=== PATIENT | female | born 1955 | race Caucasian/White ===

== ENCOUNTER 2019-07-20 03:43 | Emergency (ER) | payer MEDICARE, BC ==
[~2019-07-20] VITALS: Ht 160 cm; Wt 72.7 kg
[~2019-07-20 03:43] MED LIST: ANAS1TAB10 PO; ARIP5TAB14 PO; ATOR20TA66 PO; CHLO10CA6; CHLO25CA10 PO; DIVA125T31 PO; DULO-31 PO; INDLA60C PO; LIOT25TA12 PO; LOSA25TA96 PO; MULT-1085 PO; OMEP20CA15 PO; ONDA4TAB6 PO; SYN0.1T PO; THIA50TA10 PO
[2019-07-20] MEDS ORDERED: pantoprazole 40 MG vial IV ONE (03:55)
[2019-07-20] MEDS ORDERED: ondansetron/PF 4mg/2ml inj IV ONE (03:55)
[2019-07-20] MEDS ORDERED: normal saline 1000ML IV soln IVB ONE (03:55)
[2019-07-20] MEDS ORDERED: LORazepam 2 mg/ml vial IV ONE ×2 (03:55→04:20)
[2019-07-20] MEDS ORDERED: famotidine/PF 10 mg/ml inj IV ONE (03:55)
--- NOTE | 2019-07-20 03:56 | NUR ---
MD at bedside examing pt. at this time. Per pt, last drink has been >24 hours.
--- NOTE | 2019-07-20 04:06 | NUR ---
pollution control technician at bedside to take CXR.
[2019-07-20 04:15] LABS: ALANINE AMINOTRANSFERASE 48 U/L (12-78); ALBUMIN 3.9 G/DL (3.4-5.0); ALBUMIN/GLOBULIN RATIO 1.1 (1.1-1.5); ALKALINE PHOSPHATASE 128 IU/L (46-116); ANION GAP 19 (8-16); ASPARTATE AMINO TRANSFERASE 39 U/L (10-37); BILIRUBIN,TOTAL 0.7 MG/DL (0.1-1.0); BLOOD UREA NITROGEN 10 MG/DL (7-18); BUN/CREATININE RATIO 11.6 (6.6-38.0); CALCIUM 8.7 MG/DL (8.5-10.1); CHLORIDE 101 MMOL/L (99-107); CREATININE 0.86 MG/DL (0.40-0.90); GLUCOSE 101 MG/DL (70-104); POTASSIUM 3.7 MMOL/L (3.5-5.1); SODIUM 138 MMOL/L (135-145); TOTAL CARBON DIOXIDE 18.5 MMOL/L (24-32); TOTAL PROTEIN 7.6 G/DL (6.4-8.2); eGFR 66 ML/MIN
[2019-07-20 04:17] LABS: BASOPHILS # (AUTO) 0.1 X10'3 (0-0.2); BASOPHILS % (AUTO) 0.7 % (0-1); EOSINOPHILS # (AUTO) 0.1 X10'3 (0-0.9); EOSINOPHILS % (AUTO) 0.9 % (0-6); HEMATOCRIT 43.4 % (35.0-45.0); HEMOGLOBIN 14.7 g/dl (12.0-16.0); LYMPHOCYTES % (AUTO) 19.9 % (21-51); MEAN CORPUSCULAR HEMOGLOBIN 34.4 PG (27.0-31.0); MEAN CORPUSCULAR HGB CONC 33.8 g/dL (33.0-36.5); MEAN CORPUSCULAR VOLUME 101.9 FL (78-98); MEAN PLATELET VOLUME 6.7 FL (7.4-10.4); MONOCYTES # (AUTO) 0.5 X10'3 (0-0.9); MONOCYTES % (AUTO) 4.7 % (2-12); NEUTROPHILS # (AUTO) 7.6 X10'3 (1.8-7.7); NEUTROPHILS % (AUTO) 73.8 % (42-75); PLATELET COUNT 370 X10'3 (140-440); RED BLOOD COUNT 4.26 X10'6 (4.20-5.60); RED CELL DISTRIBUTION WIDTH 13.4 % (11.5-14.5); WHITE BLOOD COUNT 10.3 X10'3 (4.5-11.0)
[2019-07-20] MEDS ORDERED: diphenhydrAMINE 50 mg/ml inj IV ONE (04:20)
[2019-07-20] MEDS ORDERED: metoclopramide 5 mg/ml inj IV ONE (04:20)
[2019-07-20 04:23] LABS: MAGNESIUM 1.7 MG/DL (1.5-2.4)
[2019-07-20] MEDS ORDERED: LOSA50TA64 PO (04:35)
[2019-07-20] MEDS ORDERED: OMEP-50 PO (04:35)
[2019-07-20] MEDS ORDERED: DULO60CA65 PO (04:35)
[2019-07-20] MEDS ORDERED: LEVO125T8 PO (04:35)
[2019-07-20] MEDS ORDERED: ATOR40TA72 PO (04:35)
[2019-07-20] MEDS ORDERED: FOLI0.4T14 PO (04:35)
[2019-07-20] MEDS ORDERED: INDLA60C PO (04:36)
[2019-07-20] MEDS ORDERED: THIA50TA10 PO (04:37)
[2019-07-20 05:14] VITALS: BP 140/92
[2019-07-20] MEDS ORDERED: CHLO25CA10 PO (05:19)
[2019-07-20] MEDS ORDERED: chlordiazePOXIDE 25mg capsule PO ONE (05:20)
[2019-07-20] MEDS ORDERED: METO-292 PO (05:21)
[2019-07-20] MEDS ORDERED: ONDA8TAB6 PO (05:21)
[2019-08-17] MEDS ORDERED: REISHI MUSHROOM PO (09:39)
[2019-08-17] MEDS ORDERED: ONDA4TAB6 PO (09:39)
[2019-08-17] MEDS ORDERED: [UNRECOGNIZED DRUG - OTHER] PO (09:39)
[2019-08-17] MEDS ORDERED: DIVA125T31 PO (09:39)
[2019-08-17] MEDS ORDERED: ANAS1TAB24 PO (09:39)
[2019-08-17] MEDS ORDERED: POTA20TA10 PO (09:40)
[2019-08-17] MEDS ORDERED: ATOR40TA PO (09:40)
[2019-08-21] MEDS ORDERED: CHLO25CA10 PO (09:24)
[2019-08-21] MEDS ORDERED: DIVA125T9 PO (09:24)
[2019-08-21] MEDS ORDERED: NOR5T PO (09:24)
[2019-08-21] MEDS ORDERED: LOPE-190 PO (09:24)
[2019-08-21] MEDS ORDERED: ARIP5TAB60 PO (09:24)
== END 2019-07-20 05:36 | disposition home or self-care (01) ==
LOC: ER 03:44
DX: F10.10 Alcohol abuse, uncomplicated (principal); K29.20 Alcoholic gastritis without bleeding; R11.2 Nausea with vomiting, unspecified; I10 Essential (primary) hypertension; E03.9 Hypothyroidism, unspecified; F41.9 Anxiety disorder, unspecified; F32.9 Major depressive disorder, single episode, unspecified; Z88.8 Allergy status to other drugs, medicaments and biological substances; Z79.899 Other long term (current) drug therapy; Y90.0 Blood alcohol level of less than 20 mg/100 ml
CPT/HCPCS: 36415; 71045; 80053; 83735; 83880; 84484; 85025; 93005; 96361; 96374; 96375; 99285; C9113; J1200; J2060; J2405; J2765; J3490; J7030

== ENCOUNTER 2019-11-14 06:13 | Emergency (ER) | payer MEDICARE, BC ==
[~2019-11-14] VITALS: Ht 167.6 cm; Wt 72.7 kg
[~2019-11-14 06:13] MED LIST changes: -ANAS1TAB10 PO; +ANAS1TAB49 PO; -ARIP5TAB14 PO; +ARIP5TAB60 PO; -ATOR20TA66 PO; +ATOR40TA PO; -CHLO10CA6; -DIVA125T31 PO; +DIVA125T9 PO; -DULO-31 PO; +DULO60CA65 PO; -INDLA60C PO; +LEVO125T8 PO; -LIOT25TA12 PO; -LOSA25TA96 PO; +LOSA50TA64 PO; +NOR5T PO; +OMEP-50 PO; -OMEP20CA15 PO; +PROP10TA10 PO; -SYN0.1T PO
[2019-11-14] MEDS ORDERED: propranolol 10mg tablet PO ONE (06:20)
[2019-11-14] MEDS ORDERED: haloperidol lactate 5mg/ml inj IM ONE (06:20)
[2019-11-14] MEDS ORDERED: chlordiazePOXIDE 25mg capsule PO ONE ×2 (06:20→10:20)
[2019-11-14] MEDS ORDERED: LORazepam 2 mg/ml vial IV ONE (06:20)
[2019-11-14] MEDS ORDERED: magnesium 2GM in 50ml NS 50 ML IV ONE (06:25)
[2019-11-14] MEDS ORDERED: normal saline 1000ML IV soln IVB ONE (06:30)
[2019-11-14 07:02] LABS: BASOPHILS % (AUTO) 0.5 % (0-1); EOSINOPHILS # (AUTO) 0.1 X10'3 (0-0.9); EOSINOPHILS % (AUTO) 1.4 % (0-6); HEMATOCRIT 40.1 % (35.0-45.0); HEMOGLOBIN 13.7 g/dl (12.0-16.0); LYMPHOCYTES # (AUTO) 1.4 X10'3 (1.1-4.8); LYMPHOCYTES % (AUTO) 20.7 % (21-51); MEAN CORPUSCULAR HEMOGLOBIN 34.2 PG (27.0-31.0); MEAN CORPUSCULAR VOLUME 100.6 FL (78-98); MEAN PLATELET VOLUME 6.7 FL (7.4-10.4); MONOCYTES # (AUTO) 0.5 X10'3 (0-0.9); MONOCYTES % (AUTO) 6.8 % (2-12); NEUTROPHILS # (AUTO) 4.8 X10'3 (1.8-7.7); NEUTROPHILS % (AUTO) 70.6 % (42-75); PLATELET COUNT 357 X10'3 (140-440); RED BLOOD COUNT 3.99 X10'6 (4.20-5.60); RED CELL DISTRIBUTION WIDTH 13.6 % (11.5-14.5); WHITE BLOOD COUNT 6.8 X10'3 (4.5-11.0)
[2019-11-14 07:21] LABS: ANION GAP 13 (8-16); BLOOD UREA NITROGEN 12 MG/DL (7-18); CHLORIDE 103 MMOL/L (99-107); CREATININE 0.63 MG/DL (0.40-0.90); GLUCOSE 84 MG/DL (70-104); POTASSIUM 3.7 MMOL/L (3.5-5.1); SODIUM 139 MMOL/L (135-145); TOTAL CARBON DIOXIDE 22.8 MMOL/L (24-32)
[2019-11-14 07:22] LABS: ALANINE AMINOTRANSFERASE 59 U/L (12-78); ALBUMIN 3.7 G/DL (3.4-5.0); ALBUMIN/GLOBULIN RATIO 1.1 (1.1-1.5); ALKALINE PHOSPHATASE 109 IU/L (46-116); ASPARTATE AMINO TRANSFERASE 33 U/L (10-37); BILIRUBIN,TOTAL 0.3 MG/DL (0.1-1.0); CALCIUM 8.7 MG/DL (8.5-10.1); ETHANOL 0.047 GM/DL (0.0-0.010); LIPASE 170 U/L (73-393); MAGNESIUM 1.7 MG/DL (1.5-2.4); TOTAL PROTEIN 7.2 G/DL (6.4-8.2); eGFR > 90 ML/MIN
[2019-11-14] MEDS ORDERED: CHLO25CA10 PO (10:18)
[2019-11-14] MEDS ORDERED: magnesium oxide 400mg tablet PO ONE (10:20)
[2019-11-14 10:38] VITALS: BP 142/83
[2019-11-14 10:40] LABS: CLARITY,URINE CLEAR (Clear); COLOR,URINE YELLOW (Yellow); GLUCOSE, URINE NEGATIVE (Neg); KETONES,URINE NEGATIVE (Neg); LEUKOCYTE ESTERASE ,URINE NEGATIVE (Neg); NITRITES, URINE NEGATIVE (Neg); OCCULT BLOOD,URINE NEGATIVE (Neg); PROTEIN,URINE NEGATIVE (Neg); UROBILINOGEN,URINE 0.2 E.U/dL (0.2-1.0)
[2019-11-14 11:01] LABS: UA COLLECTION TYPE CLN CATCH MIDSTREAM
== END 2019-11-14 10:40 | disposition home or self-care (01) ==
LOC: ER 06:13
DX: F10.239 Alcohol dependence with withdrawal, unspecified (principal); I10 Essential (primary) hypertension; E03.9 Hypothyroidism, unspecified; F41.9 Anxiety disorder, unspecified; F32.9 Major depressive disorder, single episode, unspecified; Z98.890 Other specified postprocedural states; Z72.89 Other problems related to lifestyle; Z88.8 Allergy status to other drugs, medicaments and biological substances; Z79.899 Other long term (current) drug therapy; Y90.0 Blood alcohol level of less than 20 mg/100 ml
CPT/HCPCS: 36415; 80053; 80320; 81003; 83690; 83735; 85025; 93005; 96365; 96366; 96372; 96375; 99284; J1630; J2060; J3475; J7030

== ENCOUNTER 2019-12-07 09:20 | Emergency (ER) | payer MEDICARE, BC ==
[~2019-12-07] VITALS: Ht 167.6 cm; Wt 72.7 kg
[~2019-12-07 09:20] MED LIST changes: -ARIP5TAB60 PO; -NOR5T PO; -THIA50TA10 PO
[2019-12-07 09:45] LABS: BASOPHILS # (AUTO) 0.1 X10'3 (0-0.2); BASOPHILS % (AUTO) 0.8 % (0-1); EOSINOPHILS # (AUTO) 0.1 X10'3 (0-0.9); EOSINOPHILS % (AUTO) 1.2 % (0-6); HEMATOCRIT 44.2 % (35.0-45.0); LYMPHOCYTES # (AUTO) 1.5 X10'3 (1.1-4.8); LYMPHOCYTES % (AUTO) 13.9 % (21-51); MEAN CORPUSCULAR HEMOGLOBIN 34.2 PG (27.0-31.0); MEAN CORPUSCULAR HGB CONC 33.8 g/dL (33.0-36.5); MEAN CORPUSCULAR VOLUME 100.9 FL (78-98); MONOCYTES # (AUTO) 0.4 X10'3 (0-0.9); MONOCYTES % (AUTO) 4.2 % (2-12); NEUTROPHILS # (AUTO) 8.4 X10'3 (1.8-7.7); NEUTROPHILS % (AUTO) 79.9 % (42-75); PLATELET COUNT 341 X10'3 (140-440); RED BLOOD COUNT 4.38 X10'6 (4.20-5.60); RED CELL DISTRIBUTION WIDTH 14.3 % (11.5-14.5); WHITE BLOOD COUNT 10.5 X10'3 (4.5-11.0)
[2019-12-07 09:57] LABS: ALANINE AMINOTRANSFERASE 70 U/L (12-78); ALBUMIN 3.8 G/DL (3.4-5.0); ALKALINE PHOSPHATASE 132 IU/L (46-116); ANION GAP 14 (8-16); ASPARTATE AMINO TRANSFERASE 88 U/L (10-37); BILIRUBIN,TOTAL 0.8 MG/DL (0.1-1.0); BLOOD UREA NITROGEN 10 MG/DL (7-18); BUN/CREATININE RATIO 13.7 (6.6-38.0); CALCIUM 8.6 MG/DL (8.5-10.1); CHLORIDE 101 MMOL/L (99-107); CREATININE 0.73 MG/DL (0.40-0.90); GLUCOSE 80 MG/DL (70-104); LIPASE 77 U/L (73-393); SODIUM 141 MMOL/L (135-145); TOTAL CARBON DIOXIDE 25.9 MMOL/L (24-32); TOTAL PROTEIN 7.6 G/DL (6.4-8.2); eGFR 80 ML/MIN
--- NOTE | 2019-12-07 10:18 | NUR ---
patient is still away to [place].
[2019-12-07] MEDS ORDERED: ondansetron/PF 4mg/2ml inj IV ONE (11:05)
--- NOTE | 2019-12-07 11:37 | NUR ---
Patient resting, complained of nausea.
[2019-12-07] MEDS ORDERED: diazepam 5mg tablet PO ONE (11:50)
[2019-12-07 14:17] LABS: URINE AMPHETAMINE SCREEN NEGATIVE (Neg); URINE BARBITUATE SCREEN NEGATIVE (Neg); URINE BENZODIAZEPINES SCREEN POSITIVE (Neg); URINE CANNABINOID SCREEN POSITIVE (Neg); URINE COCAINE SCREEN NEGATIVE (Neg); URINE METHADONE SCREEN NEGATIVE (Neg); URINE OPIATE SCREEN NEGATIVE (Neg); URINE PHENCYCLIDINE SCREEN NEGATIVE (Neg)
[2019-12-07 14:34] LABS: CLARITY,URINE CLEAR (Clear); COLOR,URINE YELLOW (Yellow); GLUCOSE, URINE NEGATIVE (Neg); KETONES,URINE 15 mg/dl (Neg); LEUKOCYTE ESTERASE ,URINE NEGATIVE (Neg); NITRITES, URINE NEGATIVE (Neg); OCCULT BLOOD,URINE NEGATIVE (Neg); PROTEIN,URINE 100 mg/dl (Neg); UROBILINOGEN,URINE 0.2 E.U/dL (0.2-1.0)
[2019-12-07 14:39] LABS: UA COLLECTION TYPE STRAIGHT CATH
[2019-12-07 14:41] LABS: BACTERIA,URINE NONE SEEN /HPF (Neg); MUCUS STRANDS FEW /LPF (Neg); RBC,URINE NONE SEEN /HPF (0-2); SQUAMOUS EPITHELIAL CELL,UR FEW /LPF (FEW); WBC,URINE 0-4 /HPF (0-4)
--- NOTE | 2019-12-07 15:45 | NUR ---
Rec patient from main ER and changed to green scrubs. [facility] Rn made aware of [id number] and states he will see her
[2019-12-07 17:54] VITALS: BP 145/97
[2019-12-07] MEDS ORDERED: folic acid 1mg tablet PO ONE (18:35)
[2019-12-07] MEDS ORDERED: chlordiazePOXIDE 25mg capsule PO ONE (18:35)
[2019-12-07] MEDS ORDERED: thiamine 100mg tablet PO ONE (18:35)
[2019-12-07] MEDS ORDERED: CHLO25CA10 PO (18:39)
--- NOTE | 2019-12-07 19:02 | NUR ---
Pt was seen by [facility] at change of shift. Pt denies s/i and was not placed on a 5150 by [facility]. Pt denies s/i, states she has librium at home. Pt reports she is unable to stand but then stood and changed her clothing and walked to the bathroom. Pt reports she has no ride home. Addendum: 12/07/19 at 1910 by TRAY Pt was given dc paperwork and pt states she has librium at home and was given rx for librium as well, [employer] was contacted for a ride home
[2019-12-08] MEDS ORDERED: PROP10TA10 PO (04:06)
[2019-12-08] MEDS ORDERED: LIOT50TA6 PO (04:06)
[2019-12-08] MEDS ORDERED: VIT1CAPS46 PO (04:06)
[2019-12-08] MEDS ORDERED: HCTZ25T PO (04:06)
[2019-12-08] MEDS ORDERED: POTA10CA44 PO (04:06)
== END 2019-12-07 19:44 | disposition home or self-care (01) ==
LOC: ER 09:20
DX: S20.212A Contusion of left front wall of thorax, initial encounter (principal); M54.2 Cervicalgia; T14.8XXA Other injury of unspecified body region, initial encounter; F10.10 Alcohol abuse, uncomplicated; I10 Essential (primary) hypertension; E03.9 Hypothyroidism, unspecified; F41.9 Anxiety disorder, unspecified; F32.9 Major depressive disorder, single episode, unspecified; W18.2XXA Fall in (into) shower or empty bathtub, initial encounter; Y93.E1 Activity, personal bathing and showering; Z98.890 Other specified postprocedural states; Z88.8 Allergy status to other drugs, medicaments and biological substances; Z79.899 Other long term (current) drug therapy; Y92.89 Other specified places as the place of occurrence of the external cause; Y99.8 Other external cause status; Y90.0 Blood alcohol level of less than 20 mg/100 ml
CPT/HCPCS: 36415; 70450; 71046; 72074; 72125; 80053; 80305; 81001; 83690; 85025; 96374; 99285; J2405

== ENCOUNTER 2019-12-08 02:13 | Emergency (ER) | payer MEDICARE, BC ==
[~2019-12-08] VITALS: Ht 167.6 cm; Wt 72.0 kg
[2019-12-08] MEDS ORDERED: normal saline 1000ML IV soln IVB ONE (02:20)
[2019-12-08] MEDS ORDERED: phenobarbital inj 260 MG in normal saline 100ml IV soln 100 ML IV ONE (02:20)
[2019-12-08] MEDS ORDERED: thiamine inj. 100 MG in normal saline 100ml IV soln 99 ML IV ONE (02:20)
[2019-12-08] MEDS ORDERED: magnesium 2GM in 50ml NS 50 ML IV ONE (02:20)
[2019-12-08 02:40] LABS: BASOPHILS # (AUTO) 0.1 X10'3 (0-0.2); BASOPHILS % (AUTO) 0.6 % (0-1); EOSINOPHILS # (AUTO) 0.1 X10'3 (0-0.9); EOSINOPHILS % (AUTO) 0.7 % (0-6); HEMATOCRIT 41.8 % (35.0-45.0); HEMOGLOBIN 14.2 g/dl (12.0-16.0); LYMPHOCYTES # (AUTO) 1.7 X10'3 (1.1-4.8); LYMPHOCYTES % (AUTO) 19.2 % (21-51); MEAN CORPUSCULAR HEMOGLOBIN 35.3 PG (27.0-31.0); MEAN CORPUSCULAR HGB CONC 34.1 g/dL (33.0-36.5); MEAN CORPUSCULAR VOLUME 103.6 FL (78-98); MEAN PLATELET VOLUME 7.2 FL (7.4-10.4); MONOCYTES # (AUTO) 0.5 X10'3 (0-0.9); MONOCYTES % (AUTO) 5.6 % (2-12); NEUTROPHILS # (AUTO) 6.5 X10'3 (1.8-7.7); NEUTROPHILS % (AUTO) 73.9 % (42-75); PLATELET COUNT 275 X10'3 (140-440); RED BLOOD COUNT 4.04 X10'6 (4.20-5.60); RED CELL DISTRIBUTION WIDTH 13.9 % (11.5-14.5); WHITE BLOOD COUNT 8.7 X10'3 (4.5-11.0)
[2019-12-08 02:45] LABS: ALANINE AMINOTRANSFERASE 81 U/L (12-78); ALBUMIN 3.8 G/DL (3.4-5.0); ALKALINE PHOSPHATASE 145 IU/L (46-116); ANION GAP 25 (8-16); ASPARTATE AMINO TRANSFERASE 100 U/L (10-37); BILIRUBIN,TOTAL 1.4 MG/DL (0.1-1.0); BLOOD UREA NITROGEN 15 MG/DL (7-18); BUN/CREATININE RATIO 16.1 (6.6-38.0); CALCIUM 8.8 MG/DL (8.5-10.1); CHLORIDE 93 MMOL/L (99-107); CREATININE 0.93 MG/DL (0.40-0.90); GLUCOSE 98 MG/DL (70-104); MAGNESIUM 1.8 MG/DL (1.5-2.4); POTASSIUM 3.9 MMOL/L (3.5-5.1); SODIUM 135 MMOL/L (135-145); TOTAL PROTEIN 7.5 G/DL (6.4-8.2); eGFR 60 ML/MIN
[2019-12-08 02:48] LABS: ETHANOL < 0.010 GM/DL (0.0-0.010)
[2019-12-08] MEDS ORDERED: HCTZ25T PO (04:06)
[2019-12-08] MEDS ORDERED: LIOT50TA6 PO (04:06)
[2019-12-08] MEDS ORDERED: POTA10CA44 PO (04:06)
[2019-12-08] MEDS ORDERED: PROP10TA10 PO (04:06)
[2019-12-08] MEDS ORDERED: VIT1CAPS46 PO (04:06)
[2019-12-08] MEDS ORDERED: haloperidol lactate 5mg/ml inj IM PRN (04:45)
[2019-12-08] MEDS ORDERED: haloperidol 5mg tablet PO PRN (04:45)
[2019-12-08] MEDS ORDERED: LORazepam 2 mg/ml vial IV PRN (04:45)
[2019-12-08 05:09] LABS: URINE AMPHETAMINE SCREEN NEGATIVE (Neg); URINE BARBITUATE SCREEN POSITIVE (Neg); URINE BENZODIAZEPINES SCREEN POSITIVE (Neg); URINE CANNABINOID SCREEN POSITIVE (Neg); URINE COCAINE SCREEN NEGATIVE (Neg); URINE METHADONE SCREEN NEGATIVE (Neg); URINE OPIATE SCREEN NEGATIVE (Neg); URINE PHENCYCLIDINE SCREEN NEGATIVE (Neg)
[2019-12-08 06:00] VITALS: BP 157/124
--- NOTE | 2019-12-08 06:01 | NUR ---
FAXED PACKET [facility]
--- NOTE | 2019-12-08 07:00 | NUR ---
pt's hr 102 and pt is tremous. gave ativan per etoh protocol
[2019-12-08] MEDS ORDERED: folic acid 1mg tablet PO SCH (08:00)
[2019-12-08] MEDS ORDERED: multivitamins, therapeutics tablet PO SCH (08:00)
[2019-12-08] MEDS ORDERED: thiamine 100mg tablet PO SCH (08:00)
--- NOTE | 2019-12-08 08:00 | NUR ---
pt is sleeping
--- NOTE | 2019-12-08 10:16 | NUR ---
Breaking primary RN, pt just ambulated back from bathroom, using two wheeled walker, no needs at this time
--- NOTE | 2019-12-08 10:21 | NUR ---
[facility] at bedside, eval pt
== END 2019-12-08 12:57 | disposition home or self-care (01) ==
LOC: ER 02:13
DX: F10.129 Alcohol abuse with intoxication, unspecified (principal); R45.851 Suicidal ideations; N28.9 Disorder of kidney and ureter, unspecified; E86.0 Dehydration; R74.01 Elevation of levels of liver transaminase levels; R53.1 Weakness; R11.2 Nausea with vomiting, unspecified; I10 Essential (primary) hypertension; E03.9 Hypothyroidism, unspecified; F41.9 Anxiety disorder, unspecified; F32.9 Major depressive disorder, single episode, unspecified; Z98.890 Other specified postprocedural states; Z72.89 Other problems related to lifestyle; Z88.8 Allergy status to other drugs, medicaments and biological substances; Z79.899 Other long term (current) drug therapy; Y90.0 Blood alcohol level of less than 20 mg/100 ml
CPT/HCPCS: 36415; 80053; 80305; 80320; 82948; 83735; 84443; 85025; 93005; 96365; 96366; 96368; 96375; 99285; J2060; J2560; J3411; J3475; J7030; 99284

== ENCOUNTER 2020-09-09 09:50 | Emergency (ER) | payer MEDICARE, BC ==
[~2020-09-09] VITALS: Ht 167.6 cm; Wt 70.0 kg
[~2020-09-09 09:50] MED LIST changes: -CHLO25CA10 PO; +HYDR25TA5 PO; +LIOT50TA6 PO; +POTA10CA44 PO; +VIT1CAPS46 PO
[2020-09-09] MEDS ORDERED: gabapentin 300mg capsule PO ONE (10:25)
[2020-09-09] MEDS ORDERED: NALT50TA PO (10:30)
[2020-09-09] MEDS ORDERED: GABA300C PO (10:30)
[2020-09-09 10:40] VITALS: BP 150/90
== END 2020-09-09 11:39 | disposition home or self-care (01) ==
LOC: ER 09:51
DX: F10.230 Alcohol dependence with withdrawal, uncomplicated (principal); I10 Essential (primary) hypertension; E03.9 Hypothyroidism, unspecified; Z72.89 Other problems related to lifestyle; Z88.8 Allergy status to other drugs, medicaments and biological substances; Z79.899 Other long term (current) drug therapy; Y90.9 Presence of alcohol in blood, level not specified
CPT/HCPCS: 93005; 99284

== ENCOUNTER 2023-05-10 09:05 | Outpatient (CLI) | payer MEDICARE, BC ==
[~2023-05-10 09:05] MED LIST changes: +GABA300C PO; +NALT50TA PO; -OMEP-50 PO; +OMEP20CA16 PO; -POTA10CA44 PO; +POTA10CA85 PO
[2023-05-10] MEDS ORDERED: iohexol 350MG/ML 100ml bottle IV ONE (09:18)
== END 2023-05-10 23:59 | disposition home or self-care (01) ==
LOC: RAD 09:05
PROVIDERS: ATTEND Thoracic Surgery (Cardiothoracic Vascular Surgery)
DX: R91.1 Solitary pulmonary nodule (principal); J43.9 Emphysema, unspecified; I71.21 Aneurysm of the ascending aorta, without rupture
CPT/HCPCS: 71275; J3490; Q9967